=== PATIENT | female | born 1960 | race Caucasian/White ===

== ENCOUNTER 2023-12-12 01:36 | Emergency (ER) | payer OTHER ==
[2023-12-12 01:44] VITALS: BMI 25.7
[2023-12-12 02:34] LABS: BASO % 0.6 % (0-2.0); EOS % 1.5 % (0-4.5); HEMATOCRIT 35.8 % (32.4-45.2); HEMOGLOBIN 12.2 GM/dL (10.7-15.3); LYMPH % 38.1 % (8-40); MCH 30.7 pg (25.7-33.7); MCHC 34.1 g/dl (32.0-36.0); MEAN CELL VOLUME 90.1 fl (80-96); MONO % 9.6 % (3.8-10.2); NEUT % 50.2 % (42.8-82.8); PLATELET COUNT 251 10^3/uL (134-434); RBC 3.98 M/mm3 (3.60-5.2); RDW 14.5 % (11.6-15.6); WHITE BLOOD COUNT 6.5 K/mm3 (4.0-10.0)
[2023-12-12 02:43] LABS: INR 0.99 (0.83-1.09); PROTHROMBIN TIME (PATIENT) 11.4 SEC (9.7-13.0)
[2023-12-12 02:46] LABS: ACTIVATED PTT 29.8 SECONDS (25.2-36.5)
[2023-12-12 02:51] LABS: POTASSIUM 3.2 mmol/L (3.5-5.1)
[2023-12-12 02:54] LABS: ALBUMIN 3.6 g/dl (3.4-5.0); BLOOD UREA NITROGEN 10.4 mg/dL (7-18)
[2023-12-12 02:57] LABS: CREATININE 0.8 mg/dL (0.55-1.3)
[2023-12-12 02:59] LABS: BILIRUBIN,TOTAL 0.3 mg/dL (0.2-1); TOT PROT 6.4 g/dl (6.4-8.2)
[2023-12-12 03:19] LABS: N-TERMINAL BNP 102.5 pg/ml (5-125)
[2023-12-12 03:34] VITALS: BP 94/61; PULSE 76; RESP 18; TEMP 97.3
[2023-12-12] MEDS ORDERED: POTASSIUM CHLORIDE TABS 20 MEQ TABLET.ER (FP) PO ONE (03:37)
[2023-12-12] MEDS: POTASSIUM CHLORIDE TABS 20 MEQ TABLET.ER (FP) PO ONE (03:45)
== END 2023-12-12 06:08 | disposition home or self-care (01) ==
LOC: JER 01:36
DX: R00.2 Palpitations (principal)
CPT/HCPCS: 36415; 71045-TC-FY; 80053; 83735; 83880; 84484; 85025; 85610; 85730; 93005; 93010; 99285-25